=== PATIENT | female | born 1985 | race Hispanic/Latino ===

== ENCOUNTER 2018-04-11 22:21 | Emergency (ER) | payer OTHER, SELFPAY ==
[2018-04-12] MEDS ORDERED: Ketorolac Tromethamine 30 MG/ML VIAL ONE (00:55)
== END 2018-04-12 01:40 | disposition home or self-care (01) ==
LOC: ERS 22:21
DX: M25.562 Pain in left knee (principal); D64.9 Anemia, unspecified; Z79.899 Other long term (current) drug therapy
CPT/HCPCS: 96372; J1885